=== PATIENT | female | born 2000 | race Caucasian/White ===

== ENCOUNTER 2024-09-24 11:36 | Emergency (ER) | payer OTHER ==
[~2024-09-24] VITALS: Ht 154.9 cm; Wt 86.4 kg
[2024-09-24 11:37] VITALS: TEMP 98.2
[2024-09-24 12:05] LABS: PLATELET COUNT (AUTO) 284 K/uL (150-450); RED BLOOD CELL COUNT(AUTO) 4.70 MIL/uL (4.00-5.20); RED CELL DISTRIBUTION WIDTH 14.0 % (11.5-14.5); WHITE BLOOD COUNT (AUTO) 9.4 K/uL (4.5-11.0)
[2024-09-24 12:11] LABS: SODIUM SERUM 136 mmol/L (136-145)
[2024-09-24 12:20] LABS: CALCIUM, TOTAL 9.1 mg/dL (8.8-10.5); CREATININE 0.73 mg/dL (0.60-1.30); GLOMERULAR FILTR. RATE CALC > 60 mL/min (>60); GLUCOSE,RANDOM 117 mg/dL (70-110); UREA NITROGEN, BLOOD 8 mg/dL (7-18)
[2024-09-24 12:21] LABS: TROPONIN I-HIGH SENSITIVITY Less Than 4 ng/L (<51)
[2024-09-24] MEDS: SODIUM CHLORIDE 0.9% 1,000 ML IV ONE (13:22)
[2024-09-24] MEDS: ACETAMINOPHEN 500 MG TABLET PO ONE (13:35)
[2024-09-24 13:56] LABS: ASPARTATE AMINOTRANSFERASE 39.0 U/L (15-37); HCG,QUANTITATIVE 5813.0 mIU/mL (0-6); TOTAL PROTEIN, SERUM 7.9 g/dL (6.4-8.2)
[2024-09-24 16:07] LABS: APPEARANCE,URINE CLEAR (CLEAR); GLUCOSE, URINE (UA) NEGATIVE (NEGATIVE); LEUKOCYTE ESTERASE ,URINE NEGATIVE (NEGATIVE); NITRATE,URINE NEGATIVE (NEGATIVE); OCCULT BLOOD,URINE NEGATIVE (NEGATIVE); SPECIFIC GRAVITIY, URINE 1.008 (1.003-1.030)
[2024-09-24 17:28] VITALS: BP 141/94; PULSE 125; RESP 16; O2SAT 100
== END 2024-09-24 16:43 | disposition short-term general hospital (02) ==
LOC: EMS 11:41
DX: O26.891 Other specified pregnancy related conditions, first trimester (principal); R55 Syncope and collapse; Z90.89 Acquired absence of other organs; Z88.5 Allergy status to narcotic agent; Z3A.01 Less than 8 weeks gestation of pregnancy
CPT/HCPCS: 99285; 96360; 70450; 76801; 80048; 80076; 81003; 84484; 84702; 84703; 85025; 36415; 93005; J7030